=== PATIENT | male | born 1985 | race Caucasian/White ===

== ENCOUNTER 2023-02-21 13:46 | Outpatient (AMB) | payer OTHER, SELFPAY ==
--- NOTE | 2023-02-21 13:59 | MHC.OFFWIV ---
Intake Vital Signs 02/21/23 14:04 Height 6 ft 4 in Weight 240 lb 6 oz BMI 29.3 BP 132/86 Blood Pressure Location Lt brachial Position Sitting Pulse 83 Pulse Source Pulse Oximeter Intake Visit Reasons: EP ?Spider bite [phone] Intake Note: Pt is here today for a spider bite, noticed Friday. Patient Tobacco Use Status: Never used Tobacco Allergies amoxicillin Allergy (Mild, Verified 02/21/23 13:59) Hives cefaclor [From Ceclor] Allergy (Mild, Verified 02/21/23 13:59) Hives Medication List - Last Reconciled 02/21/23 by Umu Bearden MD No Known Home Meds Do you need a note to return to daycare/school/sports/work: Yes HPI EP ?Spider bite [phone] HPI Details Patient is a 37-year-old gentleman came in today to be evaluated for possible spider bite Patient says that he has not been feeling well for the whole week he was having slight body aches lack of appetite And then he noticed red area left side of his abdomen, so he came in thinking he has a spider bite On examination it seems as if patient has developed shingles I am treating him with famciclovir for 7 days Also have eczema which is getting worse on his hands. I have added prednisone 20 mg once a day for 5 days which will help him with shingles rash as well as eczema He is requesting a note for work which was provided. [facility] Social History Patient Tobacco Use Status: Never used Tobacco Review of Systems Const All systems reviewed & are unremarkable except as noted in HPI and below Physical Exam Vital Signs: Last Vital Signs Pulse 83 02/21/23 14:04 BP 132/86 02/21/23 14:04 BMI result Body Mass Index 29.3 Const General: no acute distress Orientation/consciousness: patient oriented x3 Eyes General: appearance normal, both eyes and all related structures Resp Effort & Inspection: normal respiratory effort and able to speak in complete sentences Auscultation: clear to auscultation bilaterally Cardio Other: S1 S2 Skin Other: Full body images: 1. Vesicular rash as per photograph Neuro General: patient oriented x3 Psych Mental Status: mental status grossly normal Assessment & Plan Assessment & Plan (1) Shingles: Code(s): B02.9 - Zoster without complications Qualifiers: Herpes zoster complications: without complications Qualified Code(s): B02.9 - Zoster without complications Plan Patient is a 37-year-old gentleman came in today to be evaluated for possible spider bite Patient says that he has not been feeling well for the whole week he was having slight body aches lack of appetite And then he noticed red area left side of his abdomen, so he came in thinking he has a spider bite On examination it seems as if patient has developed shingles I am treating him with famciclovir for 7 days Also have eczema which is getting worse on his hands. I have added prednisone 20 mg once a day for 5 days which will help him with shingles rash as well as eczema He is requesting a note for work which was provided. Medications: New famciclovir 500 mg PO Q8H 7 days 21 tabs 0RF prednisone 20 mg PO DAILY 5 days 5 tabs 0RF Coding Level of Care Code Est Pt Level 4 (51378) Diagnoses Herpes zoster without complication B02.9 Herpes zoster complications: without complications
[2023-02-21 14:04] VITALS: BP 132/86; PULSE 83; BMI 29.3
== END 2023-02-21 15:21 | disposition home or self-care (01) ==
PROVIDERS: Visit Provider Internal Medicine
DX: B02.9 Zoster without complications (principal)
CPT/HCPCS: 99214